=== PATIENT | female | born 1975 | race Caucasian/White ===

== ENCOUNTER → 2016-05-18 | Outpatient (CLI) | payer OTHER ==
--- NOTE | 2016-05-18 23:44 | MR ---
EXAMINATION TYPE: MR lumbar spine wo/w con DATE OF EXAM: 05/18/2016 8:42 PM COMPARISON: NONE HISTORY: LBP in center to the left x 3 weeks, prior surgery October 2011 TECHNIQUE: Multiplanar, multisequence images of the lumbar spine were acquired without and utilizing 20 mL intra venous MultiHance gadolinium contrast. Diffusion weighted imaging was performed. FINDINGS: The lumbar vertebra have normal alignment. There is metal artifact from posterior multilevel fusion s urgery from L3 to S1. There is mild narrowing of disc spaces from L3 to S1. There is a small posterio r L5-S1 disc herniation without any significant encroachment on the spinal canal. There is no robert ari fracture. There is no paraspinal mass. Sacroiliac joints appear normal. There is no pathologic e nhancement. There is no evidence of spinal stenosis. The neural foramina are not well seen due to met al artifact but there is no obvious stenosis. Lumbar nerve roots appear normal. There is a small post erior disc bulge at T12-L1 without any significant impingement on the canal. IMPRESSION: Multilevel posterior fusion surgery. Mild degenerative disc space narrowing with a small posterior L5 -S1 disc herniation. No spinal stenosis. No fracture.
== END | disposition home or self-care (01) ==
LOC: RADMRIMAIN 19:31
PROVIDERS: ATTEND Family Medicine
DX: M48.06 Spinal stenosis, lumbar region (principal); M51.27 Other intervertebral disc displacement, lumbosacral region; Z98.1 Arthrodesis status
CPT/HCPCS: 72158; A9577

== ENCOUNTER → 2016-06-21 | Outpatient (CLI) | payer OTHER ==
--- NOTE | 2016-06-21 11:55 | CT ---
EXAMINATION TYPE: CT lumbar spine wo con DATE OF EXAM: 06/21/2016 10:02 AM COMPARISON: MRI lumbar spine May 18, 2016. CT lumbar spine March 22, 2012 HISTORY: Patient complains of new onset back pain similar to the pain she had prior to surgery. Leslee ent had lumbar fusion in 2012. Other mechanical complication of internal fusion per order. CT DLP: 1010 mGycm Automated exposure control for dose reduction was used. FINDINGS: There is redemonstration of 5 lumbar type vertebra. Lumbar spine redemonstrated satisfactory alignmen t without evidence of acute fracture or dislocation. There is redemonstration of metallic disc materi al at L3-L4, L4-L5, and L5-S1 levels. There is redemonstration of posterior fusion hardware bilateral ly at L3-S1 levels. Positioning is stable from 2012 CT. No new suspicious lucency is present. Vertebr al body heights and disc space heights above surgical levels are within normal limits and stable. The re is posterior decompression with bilateral laminectomy defects and spinous process resection from L 3 through L5 levels redemonstrated. Scar tissue posteriorly is again seen. Interval resolution of pos terior fluid collection is consistent with resolving seroma from 2012 CT. Axial images at T12-L1 level shows small right paracentral spur disc complex effacing anterior thecal sac on axial image 8, finding correlates with MRI sagittal image 8 and axial image 24, bilateral marzena ral foramina are patent. Axial images at L1-L2 and L2-L3 levels are felt to remain within normal limits. Axial images at L3-L4, L4-L5, and L5-S1 levels show artifact from metallic hardware is stable positio dustin of screws, right L5 screw extends just past anterolateral vertebral body margin but is unchanged from prior CT. There are bilateral laminectomy defects and spinous process resection with posterior scar tissue extending up to the spinal canal unchanged in appearance from prior study. Bilateral neur al foramina are grossly patent. IMPRESSION: NO SIGNIFICANT NEW FINDING FROM CT OR RECENT MRI TO ACCOUNT FOR PATIENT'S NEW SYMPTOMS OF RECURRENT B ACK PAIN.
== END | disposition home or self-care (01) ==
LOC: RADCTMAIN 09:26
PROVIDERS: ATTEND Specialist
DX: T84.296A Other mechanical complication of internal fixation device of vertebrae, initial encounter (principal); Z98.1 Arthrodesis status
CPT/HCPCS: 72131

== ENCOUNTER → 2016-10-11 | Outpatient (CLI) | payer OTHER ==
--- NOTE | 2016-10-11 12:30 | US ---
EXAMINATION TYPE: US abdomen complete DATE OF EXAM: 10/11/2016 COMPARISON: CT CLINICAL HISTORY: 41-year-old female R10.13 epigastric pain,R11.2 Nausea w/vomiting. TECHNIQUE: Multiple sonographic images of the abdomen are obtained. 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 The remainder shows no gross abnormality. Liver: Limited intercostal views show no gross abnormality. Gallbladder: wnl Evidence for sonographic Smith's sign: No CBD: wnl Spleen: Upper limits of normal. Right Kidney: No hydronephrosis. Left Kidney: No hydronephrosis Upper IVC: wnl Abd Aorta: wnl IMPRESSION: Some limitations due to bowel gas and intercostal scanning. No specific abnormality seen.
== END | disposition home or self-care (01) ==
LOC: RADUSWWP 10:09
PROVIDERS: ATTEND Family Medicine
DX: R10.13 Epigastric pain (principal); R11.2 Nausea with vomiting, unspecified
CPT/HCPCS: 76700

== ENCOUNTER → 2017-02-14 | Outpatient (CLI) | payer BC ==
[2017-02-14 12:31] LABS: Basophils % (A) 0 %; CH 26.8; CHCM 30.5; Eosinophils # (A) 0.1 k/uL (0-0.7); Eosinophils % (A) 2 %; HDW 2.83; HGB 10.8 gm/dL (11.4-16.0); Hypochromasia Marked; Luc % (Auto) 2; Lymphocytes # (A) 1.2 k/uL (1.0-4.8); Lymphocytes % (A) 20 %; MCH 26.4 pg (25.0-35.0); MCHC 29.9 g/dL (31.0-37.0); MCV 88.2 fL (80.0-100.0); Mean Platelet Volume 7.4; Monocytes # (A) 0.3 k/uL (0-1.0); Monocytes % (A) 5 %; Neutrophils # (A) 4.2 k/uL (1.3-7.7); Neutrophils % (A) 71 %; RBC 4.08 m/uL (3.80-5.40); WBC 5.9 k/uL (3.8-10.6); WBC (Perox) 5.87
== END | disposition home or self-care (01) ==
LOC: LABPAT 11:21
PROVIDERS: ATTEND Obstetrics & Gynecology
DX: Z01.812 Encounter for preprocedural laboratory examination (principal)
CPT/HCPCS: 36415; 85025

== ENCOUNTER 2017-02-26 06:03 | Day surgery (SDC) | payer BC, OTHER ==
[2017-02-19 14:59] VITALS: BMI 37.1
--- NOTE | 2017-02-21 07:46 | P.HPOB ---
History of Present Illness H&P Date: 02/21/17 Chief Complaint: Menorrhagia This patient is a pleasant 41-year-old 3 para 3 female who is presenting for endometrial ablation secondary to persistent menorrhagia. Patient's history is such that she's had an ultrasound that showed multiple small fibroids with a normal endometrium. She's been having regular menstrual cycles that were heavy and excessive interfering with her daily life. This time she is requesting NovaSure endometrial ablation for treatment. Review of Systems Constitutional: Denies chills, Denies fever Cardiovascular: Denies chest pain, Denies shortness of breath Respiratory: Denies cough Gastrointestinal: Denies abdominal pain, Denies diarrhea, Denies nausea, Denies vomiting Genitourinary: Denies dysuria, Denies hematuria Menstruation: Reports period heavy Past Medical History Additional Past Medical History / Comment(s): spinal fluid leak following back surgery, hx. chiari malformation, frequent headaches History of Any Multi-Drug Resistant Organisms: None Reported Past Surgical History: Appendectomy, Back Surgery, Section Additional Past Surgical History / Comment(s): back surg. 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 for chiari malformation Past Anesthesia/Blood Transfusion Reactions: Previous Problems w/ Anesthesia Additional Past Anesthesia/Blood Transfusion Reaction / Comment(s): hypotension w/spinal Smoking Status: Never smoker Past Alcohol Use History: None Reported Past Drug Use History: None Reported - Past Family History Mother Family Medical History: No Reported History Medications and Allergies Home Medications Medication Instructions Recorded Confirmed Type Eletriptan HBr [Relpax] 40 mg PO DAILY PRN 02/19/17 02/19/17 History Ibuprofen [Motrin] 600 mg PO Q8HR PRN 02/19/17 02/19/17 History Topiramate [Topamax] 100 mg PO HS 02/19/17 02/19/17 History Allergies Allergy/AdvReac Type Severity Reaction Status Date / Time morphine Allergy Severe Anaphylaxis Verified 02/19/17 14:34 Exam - OBG Physical Exam Abdomen: bowel sounds normal, no diffuse tenderness, no bruit present, no guarding noted, no hepatomegaly, no splenomegaly, no mass Vulva: both: normal Vagina: normal moisture, no discharge Cervix: no lesion, no discharge Uterus: enlarged Results Transvaginal ultrasound on January 23 shows an enlarged uterus with multiple fibroids however the endometrium was normal at 5 mm. Assessment and Plan (1) Menorrhagia Narrative/Plan: This is a pleasant 42-year-old 3 para 3 female with persistent menorrhagia requesting NovaSure endometrial ablation for treatment. Patient discussed the surgery and risks including risks of infection, bleeding, possible uterine perforation, and/or thermal injury. All the patient's questions are answered written consent is obtained. Plan is hysteroscopy, D&C, and NovaSure endometrial ablation. Status: Chronic Code(s): N92.0 - EXCESSIVE AND FREQUENT MENSTRUATION WITH REGULAR CYCLE SNOMED Code(s): 035224865
[~2017-02-26 06:03] MED LIST: DEXAMETHASONE SOD PHOSPHATE 10 MG/ML 1 ML VIAL IV ONE; LACTATED RINGERS 1,000 ML IV SCH; LIDOCAINE 1% 20 ML VIAL (10MG/ML) FOR IV START INTRADERMA PRN; ONDANSETRON 4 MG/2 ML VIAL IVP ONE; Pre Op ABX Message 1 EACH MISC MISCELLANE ONE; SCOPOLAMINE 1.5MG/72HR PATCH TRANSDERM ONE; fentaNYL (PF) 50 MCG/ML 2 ML AMP IV PRN
[2017-02-26 06:23] VITALS: RESP 16
[2017-02-26] MEDS ORDERED: SUCCINYLCHOLINE CHLORIDE VIAL 200 MG/10 ML VIAL IV ONE (07:24)
[2017-02-26] MEDS ORDERED: fentaNYL (PF) 50 MCG/ML 2 ML AMP ONE (07:24)
[2017-02-26] MEDS ORDERED: LIDOCAINE 1% INJ 10MG/ML (20 ML MDV) ONE (07:24)
[2017-02-26] MEDS ORDERED: PROPOFOL 10 MG/ML 20 ML VIAL IV ONE (07:24)
[2017-02-26] MEDS ORDERED: MIDAZOLAM 2 MG/2 ML VIAL ONE (07:24)
--- NOTE | 2017-02-26 08:01 | P.OP ---
Date of Procedure: 02/26/17 Preoperative Diagnosis: Menorrhagia Postoperative Diagnosis: Same Procedure(s) Performed: #1: Hysteroscopy. #2: Dilation and curettage. 3: NovaSure endometrial ablation Anesthesia: ANNEA Surgeon: Agapito Alexandre Estimated Blood Loss (ml): 15 Urine output (ml): 50 Pathology: other (Uterine curettings) Condition: stable Disposition: PACU Indications for Procedure: Please see dictated H&P for intimate details of this patient's admission. Brief summary is a pleasant 42-year-old female with refractory menorrhagia requesting NovaSure endometrial ablation for treatment. Patient does understand the surgery and risks including risks of infection, bleeding, possible uterine perforation, and/or thermal injury. All the patient's questions are answered and a written consent is obtained. Operative Findings: This patient had a normal-appearing endometrial cavity. Description of Procedure: This patient is taken to the operating room where she is laid in the supine position. She subsequently undergoes general endotracheal anesthesia without incident. With an adequate level of anesthesia she's placed in dorsal lithotomy position. She subsequently has a vaginal perineal prep and drape. Examination under anesthesia shows a mid position uterus. I first drain the bladder for 50 mL of clear urine. A weighted speculum was placed in the posterior vagina and the anterior lip of the cervix was grabbed with an Allis clamp. Uterus is then gently sounded to approximately 8.5 cm. The cervix is then gently dilated to allow the hysteroscope into the uterine cavity. Using saline solution hysteroscopy is performed and the uterine cavity length was calculated to be 6.0 cm. With this done, cervix is dilated more to allow a small curette into the uterine cavity. A gentle but thorough 4 quadrant curettage is done and this tissue sent off to pathology. With this done the NovaSure device is then opened and appears to be intact. It is set at a length of 6.0 cm and seated into place at a width of 4.6 cm. And then passes the cavity integrity test. It is enabled at 152 W setting for 70 seconds. With this done the NovaSure device is removed it appears to be intact. Hysteroscopy again is performed and the uterine cavity appears to be completely ablated. With this done the procedure is ended. The weighted speculum was removed. Allis clamp was removed. All counts are correct 3. Patient is awakened from anesthesia and taken to the recovery room in satisfactory condition. There are no complications.
[2017-02-26 08:13] VITALS: TEMP 97
[2017-02-26] MEDS ORDERED: KETOROLAC 30 MG/ML 1 ML VIAL IVP ONE (08:24)
[2017-02-26 08:56] VITALS: PULSE 68
[2017-02-26 09:20] VITALS: BP 128/78
== END 2017-02-26 09:35 | disposition home or self-care (01) ==
LOC: OR 06:03
PROVIDERS: ATTEND Obstetrics & Gynecology
DX: N85.8 Other specified noninflammatory disorders of uterus (principal); N85.00 Endometrial hyperplasia, unspecified; Z79.899 Other long term (current) drug therapy; Z88.5 Allergy status to narcotic agent
CPT/HCPCS: 58563; 81025; 88305; J2250; J0330; J1100; J2405; J2001; J3010; J1885; J2704

== ENCOUNTER → 2017-07-02 | Outpatient (CLI) | payer BC ==
--- NOTE | 2017-07-02 13:48 | MR ---
EXAMINATION TYPE: MR brain wo/w con DATE OF EXAM: 07/02/2017 COMPARISON: 09/29/2016 HISTORY: Weakness RLE Headache TECHNIQUE: Multiplanar, multisequence images of the brain and brainstem is performed without and with IV contras t, utilizing 10 mL intravenous Gadavist . FINDINGS: Diffusion weighted images demonstrate no evidence of a recent infarct or other diffusion ab normality. There is a COMPREHENSIVE OPHTHALMOLOGIST shunt catheter with postsurgical change involving the right calvarium. Tip of the santa ter appears located within the frontal horn of the right lateral ventricle. No hydrocephalus. Midline structures demonstrate normal morphology. Cerebellar tonsils are low-lying in position measur ing approximately 3 mm below the foramen magnum. Findings suggest previous decompression surgery for Chiari malformation. Correlate for C1 laminectomy. No mass effect upon the cerebellar tonsils. Post contrast images demonstrate no abnormal enhancement. The dural venous sinuses appear patent. Changes of chronic sinusitis are noted. White matter: Approximately 5-10 areas of abnormal signal scattered throughout the white matter bilaterally which a ppear stable in size shape and morphology from the previous exam. No enhancing lesions IMPRESSION: 1. Stable right-sided shunt catheter with the ventricular size stable from the prior exam and no diag nostic evidence of hydrocephalus. 2. Stable minimal nonspecific white matter changes. 3. The cerebellar tonsils are low-lying in position measuring approximately 3 mm below the foramen ma gnum. This is similar in appearance to the prior exam. Findings also suggest decompression surgery fo r previous Chiari malformation.
== END | disposition home or self-care (01) ==
LOC: RADMRIMAIN 11:49
PROVIDERS: ATTEND Family Medicine
DX: R29.898 Other symptoms and signs involving the musculoskeletal system (principal); R51 Headache
CPT/HCPCS: 70553; A9581

== ENCOUNTER 2017-10-04 21:23 | Emergency (ER) | payer OTHER ==
[2017-10-04] MEDS ORDERED: ONDANSETRON 4 MG/2 ML VIAL IVP STA (22:35)
[2017-10-04] MEDS ORDERED: SODIUM CHLORIDE 0.9% 1,000 ML IV STA (22:35)
[2017-10-04] MEDS ORDERED: KETOROLAC 30 MG/ML 1 ML VIAL IVP STA (22:35)
[2017-10-04 22:48] LABS: Appearance,Urine Cloudy (Clear); Bilirubin,Urine Negative (Negative); Blood,Urine Negative (Negative); Color,Urine Yellow; Glucose,Urine (UA) Negative (Negative); Ketones,Urine Negative (Negative); Leukocyte Esterase,Urine Small (Negative); Mucus,Urine Few /hpf; Nitrite,Urine Negative (Negative); Protein,Urine Trace (Negative); RBC,Urine 1 /hpf (0-5); Specific Gravity,Urine 1.018 (1.001-1.035); Squamous Epithelial Cell,Urine 4 /hpf (0-4); Urobilinogen,Urine <2.0 mg/dL (<2.0); WBC,Urine 10 /hpf (0-5)
[2017-10-04 23:00] LABS: Basophils % (A) 0 %; Eosinophils # (A) 0.2 k/uL (0-0.7); Eosinophils % (A) 2 %; HCT 40.8 % (34.0-46.0); HGB 13.7 gm/dL (11.4-16.0); Lymphocytes # (A) 1.8 k/uL (1.0-4.8); Lymphocytes % (A) 26 %; MCH 31.4 pg (25.0-35.0); MCHC 33.7 g/dL (31.0-37.0); MCV 93.3 fL (80.0-100.0); Monocytes # (A) 0.3 k/uL (0-1.0); Monocytes % (A) 5 %; Neutrophils # (A) 4.6 k/uL (1.3-7.7); Neutrophils % (A) 65 %; Platelet Count 181 k/uL (150-450); RBC 4.37 m/uL (3.80-5.40); RDW 13.2 % (11.5-15.5); WBC 7.1 k/uL (3.8-10.6)
[2017-10-04 23:10] LABS: ALT 29 U/L (9-52); AST 22 U/L (14-36); Alkaline Phosphatase 59 U/L (38-126); Amylase 58 U/L (30-110); Anion Gap 12 mmol/L; Blood Urea Nitrogen 13 mg/dL (7-17); Calcium 9.2 mg/dL (8.4-10.2); Carbon Dioxide 19 mmol/L (22-30); Chloride 108 mmol/L (98-107); Glucose 98 mg/dL (74-99); Lipase 168 U/L (23-300); Potassium 4.2 mmol/L (3.5-5.1); Sodium 139 mmol/L (137-145); Total Bilirubin 0.6 mg/dL (0.2-1.3); Total Protein 6.7 g/dL (6.3-8.2)
--- NOTE | 2017-10-05 00:01 | XR ---
EXAMINATION TYPE: XR KUB DATE OF EXAM: 10/04/2017 COMPARISON: 11/08/2012 HISTORY: Right flank pain TECHNIQUE: 2 views FINDINGS: There is no sign of intestinal obstruction or pneumoperitoneum. Fecal pattern is normal. Kelly ng bases are clear. There is fusion surgery in the lower lumbar spine. IMPRESSION: Nonacute abdomen. No adverse change.
[2017-10-05 00:09] VITALS: RESP 16
--- NOTE | 2017-10-05 00:23 | CT ---
EXAMINATION TYPE: CT abdomen pelvis w con DATE OF EXAM: 10/05/2017 COMPARISON: 08/15/2014 HISTORY: RT flank pain and nausea. CT DLP: 1713.00 mGycm Automated exposure control for dose reduction was used. TECHNIQUE: Helical acquisition of images was performed from the lung bases through the pelvis. CONTRAST: Performed without Oral Contrast and with IV Contrast, patient injected with 100 mL of Isovue 300. FINDINGS: Lung bases are clear of consolidation. There is no pleural effusion. Heart size is normal. There is n o pericardial effusion. Liver spleen pancreas gallbladder appear normal. Bile ducts are not dilated. There is no adrenal mass. Kidneys show satisfactory contrast opacification. There is no hydronephrosi s. There are small right renal nonobstructing calculi. There is no retroperitoneal adenopathy. There is no ascites. There are clips in the right lower quadrant probably from appendectomy. Appendix is no t seen. There is no sign of free air. I see no intestinal wall thickening. There are no dilated loops. Bladder distends smoothly. Uterus is anteverted. There is multilevel posterior fusion surgery in the lumbar spine from L3 to S1. There is no compression fracture. IMPRESSION: THERE IS SIGNIFICANT CLEARING OF THE INFILTRATE AND ATELECTASIS AT THE LUNG BASES COMPARED TO OLD EXA M. NONOBSTRUCTING RIGHT RENAL CALCULI APPEAR NEW COMPARED TO OLD EXAM. NO SIGN OF ACUTE ABDOMEN AND P JUAN RAMON.
[2017-10-05] MEDS ORDERED: CYCLOBENZAPRINE 10MG STARTER 3 TAB BTL PO STA (01:39)
--- NOTE | 2017-10-05 01:42 | ED ---
Abdominal Pain HPI - General Chief Complaint: Abdominal Pain Stated Complaint: Abd Pain Time Seen by Provider: 10/04/17 21:39 Source: patient Mode of arrival: ambulatory Limitations: no limitations - History of Present Illness Initial Comments: 42-year-old female patient presents the emergency department today for evaluation of right flank pain since 3:30 this afternoon. Patient states that the pain is sharp in nature. States it is waxing and waning. Follow like a spasming type pain. Patient states she has had a history of kidney stones in the past and this didn't feel somewhat similar as far she can remember. Patient states she was nauseated with onset of the pain. Patient denies any hematuria, dysuria, urinary frequency, urinary urgency. She denies any fevers or chills. Denies any constipation or diarrhea. She denies any radiation of the pain into her abdomen, groin, or legs. Patient denies any recent rash, shortness breath, chest pain, numbness, tingling, dizziness, weakness, headache , visual changes, or any other complaints. - Related Data Home Medications Medication Instructions Recorded Confirmed Eletriptan HBr [Relpax] 40 mg PO DAILY PRN 02/19/17 10/04/17 Acetaminophen-Codeine 300-30mg 1 tab PO ONCE PRN 10/04/17 10/04/17 [Tylenol w/codeine #3] Ibuprofen [Motrin] 600 mg PO Q6HR PRN 10/04/17 10/04/17 Topiramate [Trokendi Xr] 100 mg PO HS 10/04/17 10/04/17 Previous Rx's Medication Instructions Recorded Cyclobenzaprine [Flexeril] 10 mg PO TID #15 tab 10/05/17 Allergies Allergy/AdvReac Type Severity Reaction Status Date / Time morphine Allergy Severe Anaphylaxis Verified 10/04/17 21:41 Review of Systems ROS Statement: Those systems with pertinent positive or pertinent negative responses have been documented in the HPI. ROS Other: All systems not noted in ROS Statement are negative. Past Medical History Additional Past Medical History / Comment(s): spinal fluid leak following back surgery. NAOMI, Back pain History of Any Multi-Drug Resistant Organisms: None Reported Past Surgical History: Back Surgery Additional Past Surgical History / Comment(s): vp talent management shunt, neuro stimulator Past Anesthesia/Blood Transfusion Reactions: No Reported Reaction Additional Past Anesthesia/Blood Transfusion Reaction / Comment(s): Reaction to spinal: hypotension Past Psychological History: No Psychological Hx Reported Smoking Status: Never smoker Past Alcohol Use History: None Reported Past Drug Use History: None Reported General Exam Limitations: no limitations General appearance: alert, in no apparent distress, other (This is a well- developed, well-nourished adult female patient in no acute distress. Vital signs upon presentation are temperature 98.1F, pulse 80, respirations 18, blood pressure 166/103, pulse ox 100% on room air.) Eye exam: Present: normal appearance, PERRL, EOMI. Absent: scleral icterus, conjunctival injection, periorbital swelling ENT exam: Present: normal exam, normal oropharynx, mucous membranes moist Respiratory exam: Present: normal lung sounds bilaterally. Absent: respiratory distress, wheezes, rales, rhonchi, stridor Cardiovascular Exam: Present: regular rate, normal rhythm, normal heart sounds. Absent: systolic murmur, diastolic murmur, rubs, gallop, clicks GI/Abdominal exam: Present: soft, normal bowel sounds. Absent: distended, tenderness, guarding, rebound, rigid Back exam: Present: normal inspection. Absent: CVA tenderness (R), CVA tenderness (L) Neurological exam: Present: alert, oriented X3, CN II-XII intact Psychiatric exam: Present: normal affect, normal mood Skin exam: Present: warm, dry, intact, normal color. Absent: rash Course Vital Signs 10/04/17 10/05/17 10/05/17 21:33 00:00 01:55 Temperature 98.1 F 97.6 F Pulse Rate 80 71 Respiratory 18 16 16 Rate Blood Pressure 166/103 123/76 O2 Sat by Pulse 100 98 100 Oximetry Medical Decision Making - Medical Decision Making 42-year-old female patient presents to the emergency department today for evaluation of right flank pain. Patient states that at onset the pain was severe. Physical examination was unremarkable. Abdomen was soft and nontender. There is no flank tenderness. Did review labs, kidney function was within normal range. Urinalysis showed no evidence of blood. Given severity of patient's pain and history of multiple back surgeries as well as CLIENT ACCOUNT MANAGER shunt insertion did perform CT of the abdomen and pelvis. CT was normal showed some renal stones on the right side with no obstruction of the ureter. No other acute findings. I did discuss findings and results with the patient. Given patient's history of back pain we did discuss possible musculoskeletal cause for her symptoms. She'll be given a prescription for muscle relaxers. She does have Tylenol 3 at home she is instructed to take this if necessary. She is instructed to follow-up with her primary care physician for recheck in 1-2 days. Return parameters discussed in detail. She verbalizes understanding and agrees with this plan. - Lab Data Result diagrams: 10/04/17 22:45 10/04/17 22:45 Lab Results 10/04/17 10/04/17 10/04/17 Range/Units 22:30 22:30 22:45 WBC (3.8-10.6) k/uL RBC (3.80-5.40) m/uL Hgb (11.4-16.0) gm/dL Hct (34.0-46.0) % MCV (80.0-100.0) fL MCH (25.0-35.0) pg MCHC (31.0-37.0) g/dL RDW (11.5-15.5) % Plt Count (150-450) k/uL Neutrophils % % Lymphocytes % % Monocytes % % Eosinophils % % Basophils % % Neutrophils # (1.3-7.7) k/uL Lymphocytes # (1.0-4.8) k/uL Monocytes # (0-1.0) k/uL Eosinophils # (0-0.7) k/uL Basophils # (0-0.2) k/uL Sodium 139 (137-145) mmol/L Potassium 4.2 (3.5-5.1) mmol/L Chloride 108 H (98-107) mmol/L Carbon Dioxide 19 L (22-30) mmol/L Anion Gap 12 mmol/L BUN 13 (7-17) mg/dL Creatinine 0.80 (0.52-1.04) mg/dL Est GFR (CKD-EPI)AfAm >90 (>60 ml/min/1.73 sqM) Est GFR (CKD-EPI)NonAf >90 (>60 ml/min/1.73 sqM) Glucose 98 (74-99) mg/dL Calcium 9.2 (8.4-10.2) mg/dL Total Bilirubin 0.6 (0.2-1.3) mg/dL AST 22 (14-36) U/L ALT 29 (9-52) U/L Alkaline Phosphatase 59 (38-126) U/L Total Protein 6.7 (6.3-8.2) g/dL Albumin 4.0 (3.5-5.0) g/dL Amylase 58 (30-110) U/L Lipase 168 (23-300) U/L Urine Color Yellow Urine Appearance Cloudy H (Clear) Urine pH 6.0 (5.0-8.0) Ur Specific [place] 1.018 (1.001-1.035) Urine Protein Trace H (Negative) Urine Glucose (UA) Negative (Negative) Urine Ketones Negative (Negative) Urine Blood Negative (Negative) Urine Nitrite Negative (Negative) Urine Bilirubin Negative (Negative) Urine Urobilinogen <2.0 (<2.0) mg/dL Ur Leukocyte Esterase Small H (Negative) Urine RBC 1 (0-5) /hpf Urine WBC 10 H (0-5) /hpf Ur Squamous Epith Cells 4 (0-4) /hpf Urine Mucus Few H (None) /hpf Urine HCG, Qual Not Detected (Not Detectd) 10/04/17 Range/Units 22:45 WBC 7.1 (3.8-10.6) k/uL RBC 4.37 (3.80-5.40) m/uL Hgb 13.7 (11.4-16.0) gm/dL Hct 40.8 (34.0-46.0) % MCV 93.3 (80.0-100.0) fL MCH 31.4 (25.0-35.0) pg MCHC 33.7 (31.0-37.0) g/dL RDW 13.2 (11.5-15.5) % Plt Count 181 (150-450) k/uL Neutrophils % 65 % Lymphocytes % 26 % Monocytes % 5 % Eosinophils % 2 % Basophils % 0 % Neutrophils # 4.6 (1.3-7.7) k/uL Lymphocytes # 1.8 (1.0-4.8) k/uL Monocytes # 0.3 (0-1.0) k/uL Eosinophils # 0.2 (0-0.7) k/uL Basophils # 0.0 (0-0.2) k/uL Sodium (137-145) mmol/L Potassium (3.5-5.1) mmol/L Chloride (98-107) mmol/L Carbon Dioxide (22-30) mmol/L Anion Gap mmol/L BUN (7-17) mg/dL Creatinine (0.52-1.04) mg/dL Est GFR (CKD-EPI)AfAm (>60 ml/min/1.73 sqM) Est GFR (CKD-EPI)NonAf (>60 ml/min/1.73 sqM) Glucose (74-99) mg/dL Calcium (8.4-10.2) mg/dL Total Bilirubin (0.2-1.3) mg/dL AST (14-36) U/L ALT (9-52) U/L Alkaline Phosphatase (38-126) U/L Total Protein (6.3-8.2) g/dL Albumin (3.5-5.0) g/dL Amylase (30-110) U/L Lipase (23-300) U/L Urine Color Urine Appearance (Clear) Urine pH (5.0-8.0) Ur Specific [place] (1.001-1.035) Urine Protein (Negative) Urine Glucose (UA) (Negative) Urine Ketones (Negative) Urine Blood (Negative) Urine Nitrite (Negative) Urine Bilirubin (Negative) Urine Urobilinogen (<2.0) mg/dL Ur Leukocyte Esterase (Negative) Urine RBC (0-5) /hpf Urine WBC (0-5) /hpf Ur Squamous Epith Cells (0-4) /hpf Urine Mucus (None) /hpf Urine HCG, Qual (Not Detectd) - Radiology Data Radiology results: report reviewed, image reviewed CT of the abdomen and pelvis with contrast was obtained. Report was reviewed in its entirety. Impression by Dr. Griffin shows significant clearing of the infiltrate and atelectasis at the lung bases compared to old exam. Nonobstructing right renal calculi appeared new compared to old exam. No sign of acute abdomen and pelvis. KUB x-ray of the abdomen was obtained. There is no sign of intestinal obstruction or pneumoperitoneum. Fecal pattern is normal. Lung bases are clear. There is fusion surgery in the lower lumbar spine. Impression by Dr. Griffin shows nonacute abdomen with no adverse change. Disposition Clinical Impression: Right flank pain Disposition: HOME SELF-CARE Condition: Good Instructions: Flank Pain (ED), Muscle Spasm (ED) Additional Instructions: Apply warm moist heat over the painful areas. Try Flexeril if your symptoms return. Follow up with your primary care physician for recheck in 1-2 days. Return here immediately for any new, worsening, or concerning symptoms. Prescriptions: Cyclobenzaprine [Flexeril] 10 mg PO TID #15 tab Is patient prescribed a controlled substance at d/c from ED?: No Referrals: Batsheva Riddle MD [Primary Care Provider] - 1-2 days Time of Disposition: 01:41
[2017-10-05 01:57] VITALS: BP 123/76; PULSE 71; TEMP 97.6
== END 2017-10-05 01:59 | disposition home or self-care (01) ==
LOC: EC 21:23
DX: R10.9 Unspecified abdominal pain (principal); J98.11 Atelectasis; R91.8 Other nonspecific abnormal finding of lung field; N20.0 Calculus of kidney; R11.0 Nausea; Z79.899 Other long term (current) drug therapy; Z88.5 Allergy status to narcotic agent
CPT/HCPCS: 36415; 80053; 82150; 83690; 85025; 81001; 81025; 74018; 74177; 99284; 96374; 96375; 96361; J2405; J1885; Q9967

== ENCOUNTER → 2017-10-16 | Outpatient (CLI) | payer OTHER ==
--- NOTE | 2017-10-16 11:04 | XR ---
Abdomen HISTORY: Right ureter stone Frontal view of the abdomen on 2 images correlated to prior CT 10/04/2017 There is a calcification superimposed over the right kidney measuring approximately 5 mm as noted on CT. Multiple scattered calcifications are present within the pelvis, many likely representing phlebol iths. Difficult to exclude distal ureteral calculus. Postop changes are noted to the lumbosacral spin e. Surgical clips present in the right lower quadrant. Lung bases are clear. IMPRESSION: Right-sided nephrolithiasis. Indeterminate calcifications within the pelvis.
== END | disposition home or self-care (01) ==
LOC: RADXRMAIN 09:00
PROVIDERS: ATTEND Urology
DX: N20.2 Calculus of kidney with calculus of ureter (principal)
CPT/HCPCS: 74018

== ENCOUNTER → 2017-10-18 | Outpatient (CLI) | payer OTHER ==
[2017-10-18 09:25] LABS: Basophils % (A) 1 %; Eosinophils # (A) 0.2 k/uL (0-0.7); Eosinophils % (A) 3 %; HCT 38.9 % (34.0-46.0); HGB 12.7 gm/dL (11.4-16.0); Lymphocytes # (A) 1.1 k/uL (1.0-4.8); Lymphocytes % (A) 19 %; MCH 30.5 pg (25.0-35.0); MCHC 32.7 g/dL (31.0-37.0); MCV 93.2 fL (80.0-100.0); Mean Platelet Volume 6.9; Monocytes # (A) 0.3 k/uL (0-1.0); Monocytes % (A) 5 %; Neutrophils % (A) 71 %; Platelet Count 296 k/uL (150-450); RBC 4.18 m/uL (3.80-5.40); RDW 12.9 % (11.5-15.5); WBC 5.6 k/uL (3.8-10.6)
[2017-10-18 09:26] LABS: Potassium 4.5 mmol/L (3.5-5.1)
[2017-10-18 09:37] LABS: Appearance,Urine Cloudy (Clear); Bacteria,Urine Few /hpf; Bilirubin,Urine Negative (Negative); Blood,Urine Trace (Negative); Color,Urine Yellow; Glucose,Urine (UA) Negative (Negative); Ketones,Urine Negative (Negative); Leukocyte Esterase,Urine Large (Negative); Mucus,Urine Occasional /hpf; Nitrite,Urine Negative (Negative); PH, Urine 5.5 (5.0-8.0); Protein,Urine Trace (Negative); RBC,Urine 6 /hpf (0-5); Specific Gravity,Urine 1.019 (1.001-1.035); Squamous Epithelial Cell,Urine 4 /hpf (0-4); Urobilinogen,Urine <2.0 mg/dL (<2.0); WBC,Urine 45 /hpf (0-5)
== END | disposition home or self-care (01) ==
LOC: LABPAT 08:52 → LABWHC1 08:52
PROVIDERS: ATTEND Urology
DX: Z01.812 Encounter for preprocedural laboratory examination (principal); N20.2 Calculus of kidney with calculus of ureter; R31.29 Other microscopic hematuria; Z79.899 Other long term (current) drug therapy
CPT/HCPCS: 36415; 80048; 81001; 85025; 87086

== ENCOUNTER 2017-10-22 13:29 | Day surgery (SDC) | payer OTHER ==
[2017-10-18 14:47] VITALS: BMI 38.7
--- NOTE | 2017-10-22 07:55 | P.GSHP ---
History of Present Illness H&P Date: 10/22/17 42yo fen=male with persistent right ureteral colic She comes for right ureteroscopy and laser lithotripsy to remove the stone and the colic - Constitutional Constitutional: Reports chronic headaches Past Medical History Additional Past Medical History / Comment(s): Hx spinal fluid leak following back surgery. NAOMI malformation, chronic back pain. Hx 1 kidney stone and now current kidney stone. History of Any Multi-Drug Resistant Organisms: None Reported Past Surgical History: Appendectomy, Back Surgery, Section Additional Past Surgical History / Comment(s): evp operations shunt, neuro stimulator, with multiple revisions on both, then both removed. L3-S1 fusion, Section X2. Surgery for Chiari Malformation. Past Anesthesia/Blood Transfusion Reactions: Previous Problems w/ Anesthesia Additional Past Anesthesia/Blood Transfusion Reaction / Comment(s): Reaction to spinal: hypotension with one of Sections - blood pressure was 40/20. Past Psychological History: No Psychological Hx Reported Smoking Status: Never smoker Past Alcohol Use History: None Reported Past Drug Use History: None Reported - Past Family History Mother Family Medical History: No Reported History Medications and Allergies Home Medications Medication Instructions Recorded Confirmed Type Ibuprofen [Motrin] 600 mg PO Q6HR PRN 10/04/17 10/18/17 History Allergies Allergy/AdvReac Type Severity Reaction Status Date / Time morphine Allergy Severe Anaphylaxis Verified 10/18/17 14:29 Surgical - Exam - General well developed, well nourished, no distress - Eyes PERRL - ENT no hearing loss - Neck no masses - Respiratory normal expansion, normal respiratory effort - Cardiovascular Rhythm: regular - Abdomen Abdomen: soft, non tender - Integumentary no rash, no growths - Neurologic normal coordination, normal sensation - Musculoskeletal normal gait, normal posture - Psychiatric oriented to time, oriented to person, oriented to place, speech is normal, memory intact Assessment and Plan Assessment: Impression: right ureteral calculous Plan Right ureteroscopy with laser lithotripsy
[~2017-10-22 13:29] MED LIST changes: -LACTATED RINGERS 1,000 ML IV SCH; +MIDAZOLAM 2 MG/2 ML VIAL IV PRN; -Pre Op ABX Message 1 EACH MISC MISCELLANE ONE; -SCOPOLAMINE 1.5MG/72HR PATCH TRANSDERM ONE
--- NOTE | 2017-10-22 14:02 | XR ---
EXAMINATION TYPE: XR KUB DATE OF EXAM: 10/22/2017 COMPARISON: 10/16/2017 INDICATION: Right renal calculi TECHNIQUE: Single view abdomen frontal projection FINDINGS: There is a normal bowel gas pattern. Psoas margins are normal. No organomegaly is present. There is a 0.5 cm calcification within the inferior pole right kidney present previously. Surgical cl ips are within the right midabdomen. Phleboliths appear to be within the pelvis appears stable. IMPRESSION: 1. Inferior pole right renal stone
[2017-10-22 14:05] VITALS: RESP 18; TEMP 98.5
[2017-10-22] MEDS ORDERED: LACTATED RINGERS 1,000 ML IV ONE (14:10)
[2017-10-22] MEDS: LACTATED RINGERS 1,000 ML IV SCH ×2 (15:51→16:44)
[2017-10-22] MEDS ORDERED: fentaNYL (PF) 50 MCG/ML 2 ML AMP ONE (16:29)
[2017-10-22] MEDS ORDERED: MIDAZOLAM 2 MG/2 ML VIAL ONE (16:29)
[2017-10-22] MEDS ORDERED: PROPOFOL 10 MG/ML 20 ML VIAL IV ONE (16:29)
[2017-10-22] MEDS ORDERED: LABETALOL 5 MG/ML VIAL MDV ONE (16:29)
--- NOTE | 2017-10-22 16:57 | P.OP ---
Date of Procedure: 10/22/17 Preoperative Diagnosis: Right ureteral stone Postoperative Diagnosis: Same Procedure(s) Performed: Cystoscopy, right retrograde pyelogram, right ureteroscopy Anesthesia: ANA LLOYD Surgeon: Erick Moreno Pathology: none sent Condition: stable Disposition: PACU Indications for Procedure: The patient is a 42-year-old female with kidney stones. She's been passing a 5 mm right ureteral stone and has a 5 mm right renal stone. She comes for right ureteroscopy because of pain. Her preoperative KUB today is indeterminate as to whether they're stone present are not. We discussed observing this versus proceed with a retrograde pyelogram. Because the amount of pain she wishes to proceed with a retrograde pyelogram we will do so. Description of Procedure: She'll brought operating suite and given sedative anesthetic. She's placed lithotomy position with sterile prep and drape. Cystoscopy Foroblique lens and 22-Kosovan sheath identifies a normal urethra. The bladder mucosa is unremarkable. Right ureteral orifice is edematous with erythema left is normal. Within a cone-tipped catheter a retrograde pyelogram was performed. The ureters of normal course and caliber but there is some narrowing and delayed drainage below the iliac vessels on the right side. Reason I passed a 7 -Kosovan mini ureteroscope up to this point. Some edema but no stone. Ago proximal to this and there is no remaining stone. Removed the ureteroscope. The bladder strain the patient's awake and returned recovery in good condition Impression passed ureteral stone right. The patient undergo shockwave lithotripsy to the renal stone and later date.
[2017-10-22 17:57] VITALS: BP 152/95; PULSE 85
--- NOTE | 2017-10-22 22:44 | FL ---
EXAMINATION TYPE: FL urography retrograde DATE OF EXAM: 10/22/2017 FLUOROSCOPY Fluoroscopy time of 23 seconds was used during right sided ureteroscopy. 1 image/s document/s the pr zeinab.
== END 2017-10-22 18:29 | disposition home or self-care (01) ==
LOC: OR 13:29
PROVIDERS: ATTEND Urology
DX: N20.2 Calculus of kidney with calculus of ureter (principal); Z79.899 Other long term (current) drug therapy; Z88.5 Allergy status to narcotic agent
CPT/HCPCS: 81025; 74420; 74018; 52005; J2250; J1100; J2405; J3010; J2704

== ENCOUNTER → 2017-11-01 | Outpatient (CLI) | payer OTHER ==
[2017-11-01 10:21] LABS: Basophils % (A) 0 %; Eosinophils # (A) 0.2 k/uL (0-0.7); Eosinophils % (A) 3 %; HGB 12.8 gm/dL (11.4-16.0); Lymphocytes # (A) 1.3 k/uL (1.0-4.8); Lymphocytes % (A) 20 %; MCH 29.5 pg (25.0-35.0); MCV 92.4 fL (80.0-100.0); Mean Platelet Volume 6.7; Monocytes # (A) 0.3 k/uL (0-1.0); Monocytes % (A) 5 %; Neutrophils # (A) 4.5 k/uL (1.3-7.7); Neutrophils % (A) 71 %; Platelet Count 230 k/uL (150-450); RBC 4.33 m/uL (3.80-5.40); WBC 6.3 k/uL (3.8-10.6)
[2017-11-01 10:25] LABS: Appearance,Urine Cloudy (Clear); Bacteria,Urine Rare /hpf; Bilirubin,Urine Negative (Negative); Blood,Urine Negative (Negative); Color,Urine Yellow; Glucose,Urine (UA) Negative (Negative); Ketones,Urine Negative (Negative); Leukocyte Esterase,Urine Moderate (Negative); Mucus,Urine Few /hpf; Nitrite,Urine Negative (Negative); Protein,Urine Trace (Negative); RBC,Urine 2 /hpf (0-5); Specific Gravity,Urine 1.024 (1.001-1.035); Squamous Epithelial Cell,Urine 6 /hpf (0-4); Urobilinogen,Urine <2.0 mg/dL (<2.0); WBC,Urine 12 /hpf (0-5)
[2017-11-01 10:28] LABS: Anion Gap 9 mmol/L; Blood Urea Nitrogen 14 mg/dL (7-17); Carbon Dioxide 25 mmol/L (22-30); Chloride 105 mmol/L (98-107); Potassium 3.9 mmol/L (3.5-5.1); Sodium 139 mmol/L (137-145)
== END | disposition home or self-care (01) ==
LOC: LABWHC1 09:51
PROVIDERS: ATTEND Urology
DX: N20.0 Calculus of kidney (principal)
CPT/HCPCS: 36415; 80051; 81001; 82565; 84520; 85025

== ENCOUNTER → 2017-11-12 | Outpatient (CLI) | payer OTHER ==
--- NOTE | 2017-11-12 08:12 | XR ---
EXAMINATION TYPE: XR abdomen 1V DATE OF EXAM: 11/12/2017 7:40 AM CLINICAL HISTORY: Right-sided nephrolithiasis. Status post lithotripsy TECHNIQUE: Single supine KUB image of the abdomen is obtained. COMPARISON: 10/22/2017. FINDINGS: Right-sided neurogenic stimulator overlies the right lower quadrant obscures visualization. Surgical clips are seen adjacent to this with surgical change of the lumbar spine. Hypoplastic 12th ribs are incidentally noted. The previously seen 5 mm calculus overlying the right l ower pole renal shadow is no longer identified. No left-sided nephrolithiasis is definitively seen. M oderate amount retained colonic stool is seen, partially limiting evaluation. Phleboliths within the pelvis appear similar to the prior of 10/22/2017. Mild femoral acetabular arthropathy is noted bilater ally. IMPRESSION: 1. The previously seen 5 mm right renal calculus is no longer present radiographically and likely pas sed in the interim. Pelvic phleboliths are stable. 2. No discrete left-sided nephrolithiasis.
== END | disposition home or self-care (01) ==
LOC: RADXRMAIN 07:28
PROVIDERS: ATTEND Urology
DX: N20.0 Calculus of kidney (principal)
CPT/HCPCS: 74018

== ENCOUNTER → 2018-01-29 | Outpatient (CLI) | payer OTHER ==
--- NOTE | 2018-01-29 10:07 | EST ---
EXERCISE STRESS AGE: 42 SEX: F HT: 66" WT: 250 PROTOCOL: Oni Stress Test STAGE: II DURATION OF EXERCISE: 6:00 HEART RATE REST: 80 BLOOD PRESSURE REST: 135/85 MAXIMUM HEART RATE ACHIEVED: 150 MAXIMUM BLOOD PRESSURE: 171/81 85% MPHR: 150 100% MPHR: 176 METS: 7.3 INDICATIONS: Chest pain. CLINICAL INFORMATION: Baseline EKG shows sinus rhythm, normal axis, normal intervals. Patient exercised on Oni protocol for a total of 6 minutes achieving 7 METS, 85% of predicted maximal heart rate without chest pain or diagnostic ST-segment depression. CONCLUSION: 1. Average exercise tolerance. 2. Negative stress test by EKG criteria. Patient had vague atypical chest discomfort during exercise. MMODL / IJN: [id number] /
== END ==
LOC: RADNMMAIN 08:23
PROVIDERS: ATTEND Family Medicine
DX: R07.89 Other chest pain (principal); I10 Essential (primary) hypertension; Z82.49 Family history of ischemic heart disease and other diseases of the circulatory system
CPT/HCPCS: 93017

== ENCOUNTER → 2019-05-21 | Outpatient (CLI) | payer BC ==
--- NOTE | 2019-05-21 11:04 | XR ---
EXAMINATION TYPE: XR thoracic spine complete DATE OF EXAM: 05/21/2019 Comparison: None Clinical History: 44-year-old female M54.6 Tspine pain Findings: Spinal stimulator and centered along the lower thoracic spinal canal. There are 12 thoracic vertebral bodies. No pedicles are visualized. Moderate disc degenerative change mid thoracic spine. Vertebral body heights are preserved. Alignment maintained though there is some limited examination of the uppermost thoracic vertebral bodies due t o overlying shoulders. Partially visualized posterior and interbody lumbar fusion hardware. Impression: Moderate degenerative disc disease mid to lower thoracic spine. No vertebral compression collapse or malalignment.
== END ==
LOC: RADXRMAIN 09:03
PROVIDERS: ATTEND Family Medicine
DX: M51.34 Other intervertebral disc degeneration, thoracic region (principal)
CPT/HCPCS: 72072

== ENCOUNTER → 2020-09-01 | Outpatient (CLI) | payer BC | END | disposition home or self-care (01) | LOC: LABWHC1 07:19 | PROVIDERS: ATTEND Family Medicine | DX: Z01.812 Encounter for preprocedural laboratory examination (principal); Z20.822 Contact with and (suspected) exposure to COVID-19 | CPT/HCPCS: U0003; C9803; U0005 ==

== ENCOUNTER 2020-11-06 10:09 | Emergency (ER) | payer BC ==
[2020-11-06 10:18] VITALS: BP 159/93; PULSE 90; RESP 18; TEMP 98.7
--- NOTE | 2020-11-06 11:09 | ED ---
Back Pain HPI - General Chief Complaint: Back Pain/Injury Stated Complaint: implant infection Source: patient, RN notes reviewed, old records reviewed Limitations: no limitations - History of Present Illness Initial Comments: 45-year-old well-appearing white female, alert and oriented 4, presents to the emergency room ambulatory with complaints of right lower back pain at site of her neurostimulator. She states that this was placed on 09/10/2020. She states that she woke up this morning and she felt some discomfort and her stated that it looks swollen and red. She states it feels like a burning pain. She did call her neurologist Dr. Davenport ([place]) and was told to come to the emergency room for evaluation and possibly get placed on broad-spectrum antibiotics and followup with him in the office next week. Patient denies any fevers, or focal neural deficits. She is able to ambulate she states that the pain feels a burning and pulling sensation. MD Complaint: back pain -: hour(s) (4) Similar Symptoms Previously: No Radiation: none Severity scale (1-10): 5 Quality: burning, other Consistency: constant Improves With: none Worsens With: none Context: other (Pulmonary at site of neurostimulator) Associated Symptoms: denies other symptoms - Related Data Home Medications Medication Instructions Recorded Confirmed Ibuprofen [Motrin] 600 mg PO Q6H PRN 10/04/17 11/06/20 Galcanezumab-Gnlm [Emgality] 120 mg SQ Q28D 11/06/20 11/06/20 Naratriptan HCl 2.5 mg PO DAILY PRN 11/06/20 11/06/20 amLODIPine [Norvasc] 2.5 mg PO HS 11/06/20 11/06/20 amLODIPine [Norvasc] 5 mg PO HS 11/06/20 11/06/20 Previous Rx's Medication Instructions Recorded Cephalexin [Keflex] 500 mg PO Q6HR 7 Days #28 cap 11/06/20 Sulfamethox-Tmp 800-160Mg [Bactrim 1 tab PO Q12HR 7 Days #14 tab 11/06/20 DS 800-160 mg] Allergies Allergy/AdvReac Type Severity Reaction Status Date / Time morphine Allergy Severe Anaphylaxis Verified 11/06/20 11:12 Review of Systems ROS Statement: Those systems with pertinent positive or pertinent negative responses have been documented in the HPI. ROS Other: All systems not noted in ROS Statement are negative. Past Medical History Additional Past Medical History / Comment(s): spinal fluid leak following back surgery. 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 Absent: scleral icterus, conjunctival injection, periorbital swelling ENT exam: Present: normal exam, normal oropharynx, mucous membranes moist Neck exam: Present: normal inspection. Absent: tenderness, meningismus, lymphadenopathy Respiratory exam: Present: normal lung sounds bilaterally. Absent: decreased breath sounds Cardiovascular Exam: Present: regular rate, normal rhythm, normal heart sounds. Absent: systolic murmur, diastolic murmur, rubs, gallop, clicks GI/Abdominal exam: Present: soft, normal bowel sounds. Absent: distended, tenderness, guarding, rebound, rigid Extremities exam: Present: normal inspection, full ROM, normal capillary refill. Absent: tenderness, pedal edema, joint swelling, calf tenderness Back exam: Present: normal inspection, full ROM, tenderness (Right lower lumbar spine at site of stimulator). Absent: muscle spasm, paraspinal tenderness, vertebral tenderness, rash noted Neurological exam: Present: alert, oriented X3, CN II-XII intact Psychiatric exam: Present: normal affect, normal mood Skin exam: Present: warm, dry, intact, normal color. Absent: rash Course Vital Signs 11/06/20 10:15 Temperature 98.7 F Pulse Rate 90 Respiratory 18 Rate Blood Pressure 159/93 O2 Sat by Pulse 99 Oximetry Medical Decision Making - Medical Decision Making This is a well-appearing pleasant patient who has been in contact with her neurologist by phone today and he directed her to come to the emergency room for antibiotics. He told her he would see her in the office next week. Patient has no systemic signs of infection. She denies any trauma. She is ambulatory with a steady gait. There is no focal neurological deficits. She is comfortable being discharged on antibiotics and will return if symptoms worsen including fevers, nausea vomiting or any focal neurological deficits. Case was discussed with Dr. Correa was agreeable to this plan of care. Disposition Clinical Impression: Cellulitis Disposition: HOME SELF-CARE Condition: Good Instructions (If sedation given, give patient instructions): Acute Low Back Pain (ED) Additional Instructions: Take antibiotics as prescribed and follow-up with their neurologist early next week. Return to the emergency room with any worsening symptoms including fever, increased pain or n/v. Prescriptions: Sulfamethox-Tmp 800-160Mg [Bactrim DS 800-160 mg] 1 tab PO Q12HR 7 Days #14 tab Cephalexin [Keflex] 500 mg PO Q6HR 7 Days #28 cap Is patient prescribed a controlled substance at d/c from ED?: No Referrals: Bobby Cannon [Primary Care Provider] - 1-2 days Time of Disposition: 11:12
== END 2020-11-06 11:22 | disposition home or self-care (01) ==
LOC: EC 10:09
DX: L03.312 Cellulitis of back [any part except buttock and flank] (principal)
CPT/HCPCS: 99283

== ENCOUNTER 2020-11-25 10:15 | Emergency (ER) | payer BC ==
[2020-11-25 10:31] VITALS: TEMP 97.6
[2020-11-25] MEDS ORDERED: METOCLOPRAMIDE 5 MG/ML 2 ML VIAL IVP STA (10:48)
[2020-11-25] MEDS ORDERED: SODIUM CHLORIDE 0.9% 1,000 ML IV ONE (10:48)
--- NOTE | 2020-11-25 11:00 | ED ---
General Adult HPI - General Chief complaint: Overdose Stated complaint: Overdose/Lightheaded Time Seen by Provider: 11/25/20 10:30 Source: patient, RN notes reviewed, old records reviewed Mode of arrival: ambulatory Limitations: no limitations - History of Present Illness Initial comments: This is a 45-year-old female presents emergency department stating that she recently had back surgery was given oxycodone for pain. Patient states she only takes half a pill at a time and today she inadvertently took 2 pills syncope were her blood pressure medications. Patient states she did at 8:00 this morning and since then she's become very nauseated but has not vomited and feels very dizzy and very sleepy. Patient states she was told by poison control to come to the emergency department. Patient denies any chest pain difficulty breathing shortness of breath. Patient denies any abdominal pain. Patient denies any other symptoms at this time. - Related Data Home Medications Medication Instructions Recorded Confirmed Galcanezumab-Gnlm [Emgality] 120 mg SQ Q28D 11/06/20 11/25/20 amLODIPine [Norvasc] 10 mg PO DAILY 11/06/20 11/25/20 oxyCODONE HCL [OxyIR] 2.5 - 5 mg PO Q6H PRN 11/25/20 11/25/20 Previous Rx's Medication Instructions Recorded Metoclopramide [Reglan] 5 mg PO Q6H #5 tab 11/25/20 Allergies Allergy/AdvReac Type Severity Reaction Status Date / Time morphine Allergy Severe Anaphylaxis Verified 11/25/20 11:40 Review of Systems ROS Statement: Those systems with pertinent positive or pertinent negative responses have been documented in the HPI. ROS Other: All systems not noted in ROS Statement are negative. Past Medical History Additional Past Medical History / Comment(s): spinal fluid leak following back surgery. NAOMI, Back pain History of Any Multi-Drug Resistant Organisms: None Reported Past Surgical History: Back Surgery Additional Past Surgical History / Comment(s): vp lab shunt, neuro stimulator Past Anesthesia/Blood Transfusion Reactions: No Reported Reaction Additional Past Anesthesia/Blood Transfusion Reaction / Comment(s): Reaction to spinal: hypotension Past Psychological History: No Psychological Hx Reported Smoking Status: Never smoker Past Alcohol Use History: None Reported Past Drug Use History: None Reported General Exam - General Exam Comments Initial Comments: GENERAL: Patient is well-developed and well-nourished. Patient is nontoxic and well- hydrated and is in mild distress. ENT: Neck is soft and supple. No significant lymphadenopathy is noted. Oropharynx is clear. Moist mucous membranes. EYES: The sclera were anicteric and conjunctiva were pink and moist. Extraocular movements were intact and pupils were equal round and reactive to light. Eyelids were unremarkable. PULMONARY: Unlabored respirations. Good breath sounds bilaterally. No audible rales rhonchi or wheezing was noted. CARDIOVASCULAR: There is a regular rate and rhythm without any murmurs gallops or rubs. ABDOMEN: Soft and nontender with normal bowel sounds. SKIN: Skin is clear with no lesions or rashes and otherwise unremarkable. NEUROLOGIC: Patient is alert and oriented x3. Cranial nerves II through XII are grossly intact. Motor and sensory are also intact. Normal speech, volume and content. Symmetrical smile. MUSCULOSKELETAL: Normal extremities with adequate strength and full range of motion. LYMPHATICS: No significant lymphadenopathy is noted PSYCHIATRIC: Normal psychiatric evaluation. Limitations: no limitations Course Vital Signs 11/25/20 11/25/20 10:28 12:08 Temperature 97.6 F Pulse Rate 79 76 Respiratory 20 18 Rate Blood Pressure 144/76 128/82 O2 Sat by Pulse 98 97 Oximetry Disposition Clinical Impression: Accidental drug overdose Disposition: HOME SELF-CARE Condition: Good Instructions (If sedation given, give patient instructions): Adult Overdose (ED) Prescriptions: Metoclopramide [Reglan] 5 mg PO Q6H #5 tab Is patient prescribed a controlled substance at d/c from ED?: No Referrals: Bobby Cannon [Primary Care Provider] - 1-2 days Time of Disposition: 12:56
[2020-11-25 13:19] VITALS: BP 122/74; PULSE 78; RESP 16
== END 2020-11-25 13:19 | disposition home or self-care (01) ==
LOC: EC 10:15
DX: T40.2X1A Poisoning by other opioids, accidental (unintentional), initial encounter (principal)
CPT/HCPCS: 99284; 96374; 96361; J2765

== ENCOUNTER → 2021-04-07 | Outpatient (CLI) | payer BC ==
--- NOTE | 2021-04-07 14:01 | MM ---
Reason for exam: screening (asymptomatic). Last mammogram was performed 6 years and 7 months ago. Physical Findings: A clinical breast exam by your physician is recommended on an annual basis and results should be correlated with mammographic findings. MG 3D Screening Mammo W/Cad Bilateral CC and MLO view(s) were taken. Prior study comparison: September 07, 2014, bilateral MG screening mammo w CAD. There are scattered fibroglandular densities. There is no discrete abnormality. ASSESSMENT: Negative, BI-RAD 1 RECOMMENDATION: Routine screening mammogram of both breasts in 1 year.
== END | disposition home or self-care (01) ==
LOC: RADMAMWWP 08:12
PROVIDERS: ATTEND Obstetrics & Gynecology
DX: Z12.31 Encounter for screening mammogram for malignant neoplasm of breast (principal)
CPT/HCPCS: 77063; 77067

== ENCOUNTER → 2022-01-04 | Outpatient (CLI) | payer BC ==
[2022-01-04 09:01] VITALS: BP 149/90; PULSE 68; RESP 18; TEMP 98.8
--- NOTE | 2022-01-04 14:09 | P.PAINPG ---
PQRS Measure Charge Sheet Comment: HISTORY OF PRESENT ILLNESS: 46 yr old female as a referral from Dr. Soto presents today w severe and chronic secondary to for evaluation. Pt states her pain level is currently at 6/10 in intensity, constant, localized in the lower lumbar spine, localized in the mid to lower lumbar spine, constant, dull in character w shooting towards the flanks L & R of midline. Pain is provoked w activity and bending. Pain is palliated w PT/massage/ chiropractics but it has been years, heat, ice, meds (Oxycodone, Ibuprofen), topicals, repositioning and rest. 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 No recent weight loss. NEUROLOGICAL: + numbness and tingling along the distal extremities. No seizure disorders or headaches. MUSCULOSKELETAL: + pain PSYCHIATRIC: Denies current depression or suicidal thoughts. Physical Examinations : Constitutional : Cooperative , not in acute distress . Neurologic : Cranial nerve II to XII intact. No focal neurological deficits. Psychiatric : alert & oriented x 3. Matching mood & appropriate affect. Judgment & insight intact. Musculoskeletal : Cervical Spine Motor strength in the deltoid and biceps: Normal right side. Normal Left side Motor strength biceps and the wrist extensors: Normal right side . Normal left side Motor strength in the triceps muscle: Normal right side. Normal left side Deep tendon reflexes: Normal at the biceps. Normal at Brachioradialis. Normal at triceps Vertebral body tenderness to deep palpation over Cervical facet loading test: positive bilaterally Spurling test: positive bilaterally Neck distraction test: positive bilaterally Debbie sign: positive bilaterally Lumbar spine Motor strength lower extremities ,thigh and legs 5/5 Right side , 5/5 Left side Deep tendon reflexes : Normal Knee Jerk. Normal Ankle Jerk Vertebral body tenderness over L5 Lumbar facet Loading Test: positive Right / positive Left Range of motion of the lumbar spine Flexion 30 degrees, extension 10 degrees Straight Leg Raise test: Left/ Right positive at degree Antoine test: positive right / positive left. Severe tenderness over the Sacroiliac joint on the Right / Left sides Gaenslen test: positive bilaterally Seated flexion test: positive bilaterally. Sacral spine : Severe tenderness over the Sacroiliac joint: right side / left side Range of motion: Flexion of the lumbar spine <60 degrees Range of motion: Extension of the lumbar spine <20 degrees Gaenslen's Test positive Hugo's Test positive Antione test: positive right side / left side Thigh Thrust Test Sacral Thrust Test Imaging: CT Lumbar spine from 2017 reviewed Assessment/ Plan : Lumbar DDD, Lumbar spondylosis Recommendation of CT without contrast of the lumbar spine re: M51.36 Pt is not interested in interventional treatment at this time as she has [address] from [facility]. She may return to our clinic on an as needed basis. All questions answered. I have spent greater than 30 minutes on patient care today. Dr Patel was available by phone for the evaluation of this patient. The time was used to review the medical records including relevant urine studies and Prescription history (MAPs), review of the available imaging, evaluation and examination of the patient, coordination of care with the medical staff and if applicable referring physicians, as well as creation of the medical record PQRS Narrative: Smoking Status Never smoker Pain Intensity [Back] 6 Hx Alcohol Use (MH) No Home Medications: Ambulatory Orders Galcanezumab-Gnlm [Emgality] 120 mg SQ Q28D 11/06/20 amLODIPine [Norvasc] 10 mg PO DAILY 11/06/20 Ibuprofen 800 mg PO Q8H PRN 01/02/22 Controlled Substance Measures - Controlled Substance Measures Is patient prescribed a controlled substance at discharge?: No
[2022-01-04 14:27] LABS: Basophils # (A) 0.03 X 10*3/uL (0.00-0.10); Basophils % (A) 0.6 %; Eosinophils # (A) 0.19 X 10*3/uL (0.04-0.35); Eosinophils % (A) 3.7 %; HGB 14.2 g/dL (12.0-15.0); Immature Grans, Automated 0.4 %; Lymphocytes # (A) 1.59 X 10*3/uL (0.90-5.00); Lymphocytes % (A) 30.6 %; MCH 31.3 pg (27.0-32.0); MCV 94.7 fL (80.0-97.0); Mean Platelet Volume 10.4 fL (9.5-12.2); Monocytes # (A) 0.31 X 10*3/uL (0.20-1.00); NRBC Per 100 WBC 0 /100 WBCS (0.0-0.0); Neutrophils # (A) 3.05 X 10*3/uL (1.80-7.70); Neutrophils % (A) 58.7 %; Platelet Count 213 X 10*3/uL (140-440); RBC 4.54 X 10*6/uL (4.10-5.20); WBC 5.19 X 10*3/uL (4.50-10.00)
[2022-01-04 15:49] LABS: ALT 25 U/L (8-44); AST 15 U/L (13-35); African American GFR (CKD) 89.9 (60.0-200.0); Albumin 4.3 g/dL (3.8-4.9); Albumin/Globulin Ratio 1.94 (1.60-3.17); Alkaline Phosphatase 78 U/L (41-126); BUN/Creat Ratio 14.87 Ratio (12.00-20.00); Blood Urea Nitrogen 13.1 mg/dL (9.0-27.0); Calcium 9.3 mg/dL (8.7-10.3); Carbon Dioxide 27.6 mmol/L (20.0-27.5); Chloride 105 mmol/L (96-109); Chol/HDL Ratio 2.51 Ratio; Globulin 2.2 g/dL (1.6-3.3); Glucose 97 mg/dL (70-110); LDL Cholesterol,Calculated 84.2 mg/dL (0.0-131.0); Non-African American GFR(CKD) 77.6 (60.0-200.0); Potassium 4.2 mmol/L (3.5-5.5); Sodium 142 mmol/L (135-145); Total Protein 6.5 g/dL (6.2-8.2)
== END ==
LOC: PNWHC3 08:12
PROVIDERS: ATTEND Specialist
DX: M47.816 Spondylosis without myelopathy or radiculopathy, lumbar region (principal); M51.36 Other intervertebral disc degeneration, lumbar region; E66.9 Obesity, unspecified; Z68.39 Body mass index [BMI] 39.0-39.9, adult; Z88.6 Allergy status to analgesic agent
CPT/HCPCS: 80053; 80061; 84443; 85025; 99211

== ENCOUNTER → 2022-01-04 | Outpatient (CLI) | payer BC | END | disposition home or self-care (01) | LOC: LABWHC1 08:19 | PROVIDERS: ATTEND Internal Medicine | DX: Z53.9 Procedure and treatment not carried out, unspecified reason (principal) ==

== ENCOUNTER → 2022-01-18 | Outpatient (CLI) | payer BC ==
--- NOTE | 2022-01-18 17:25 | CT ---
EXAMINATION TYPE: CT lumbar spine wo con DATE OF EXAM: 01/18/2022 COMPARISON: 06/21/2016 HISTORY: 46-year-old female M51.36, Back pain TECHNIQUE: Contiguous axial scanning of the lumbar spine without IV contrast. Coronal and sagittal re constructions performed. CT DLP: 1867.9 mGycm Automated exposure control for dose reduction was used. FINDINGS: 2 generator devices along the posterior aspect of the lower lumbar spine and upper buttock region. Sp inal stimulator raise within the lower thoracic spinal canal. Some bridging anterior endplate spondylosis lower thoracic spine. Posterior disc ossified complex T12 -L1 mildly narrowing the spinal canal. Postsurgical change of L3-S1 posterior and interbody lumbar fusion with corresponding laminectomies. Moderate degenerative disc disease and facet arthropathy above the fusion at L2-L3 with trace grade 1 retrolisthesis. There is mild narrowing of the spinal canal here at this level. Otherwise, remaining alignment is maintained and vertebral body heights are preserved. At L5-S1, there may be a right paracentral disc osteophyte complex. This could potentially abut the t raversing right S1 nerve root. On the left, changes result in moderate neuroforaminal stenosis at L5-S1 and L1-L2. Also at T9-T10. Mild at multiple additional levels. On the right, changes result in moderate neural foraminal stenosis at L5-S1, mild to moderate at L2-L 3, and mild at multiple additional levels. Punctate nonobstructive 2 mm left renal calculi. Two adjacent nonobstructive 4 mm right renal calculi . IMPRESSION: 1. STATUS POST L3-S1 POSTERIOR AND INTERBODY LUMBAR FUSION WITH CORRESPONDING LAMINECTOMIES. 2. THERE MAY BE A RIGHT PARACENTRAL DISC OSTEOPHYTE COMPLEX AT L5-S1 THAT COULD POTENTIALLY ABUT THE TRAVERSING RIGHT S1 NERVE ROOT. MODERATE BILATERAL NEUROFORAMINAL STENOSIS AT THIS LEVEL. 3. ABOVE THE FUSION AT L2-L3, THERE IS FACET ARTHROPATHY AND MODERATE DEGENERATIVE DISC DISEASE AND T RACE GRADE 1 RETROLISTHESIS. MILD NARROWING OF THE SPINAL CANAL AT THIS LEVEL WITH MILD TO MODERATE N EUROFORAMINAL NARROWING.
== END | disposition home or self-care (01) ==
LOC: RADCTMAIN 15:20
PROVIDERS: ATTEND Specialist
DX: M51.36 Other intervertebral disc degeneration, lumbar region (principal); N20.0 Calculus of kidney; M48.061 Spinal stenosis, lumbar region without neurogenic claudication
CPT/HCPCS: 72131

== ENCOUNTER → 2022-08-15 | Outpatient (CLI) | payer BC ==
--- NOTE | 2022-08-16 08:47 | MM ---
Reason for Exam: Screening (asymptomatic). Last mammogram was performed 1 year(s) and 4 month(s) ago. Patient History: Menarche at age 10. First Full-Term at age 18. Postmenopausal. Risk Values: Ana 5 year model risk: 0.8%. NCI Lifetime model risk: 8.2%. Prior Study Comparison: 09/07/2014 Bilateral Screening Mammogram, [facility]. 04/07/2021 Bilateral Screening Mammogram, [facility]. Tissue Density: There are scattered fibroglandular densities. Findings: Analyzed By CAD. There is no suspicious group of microcalcifications or new suspicious mass in either breast. Overall Assessment: Negative, BI-RAD 1 Management: Screening Mammogram of both breasts in 1 year. A clinical breast exam by your physician is recommended on an annual basis and results should be correlated with mammographic findings. Electronically signed and approved by: Duong Chao D.O.
== END | disposition home or self-care (01) ==
LOC: RADMAMWWP 07:01
PROVIDERS: ATTEND Internal Medicine
DX: Z12.31 Encounter for screening mammogram for malignant neoplasm of breast (principal); Z78.0 Asymptomatic menopausal state
CPT/HCPCS: 77063; 77067

== ENCOUNTER → 2023-02-10 | Outpatient (CLI) | payer BC ==
[2023-02-10 13:49] LABS: Basophils # (A) 0.04 X 10*3/uL (0.00-0.10); Basophils % (A) 0.6 %; Eosinophils # (A) 0.11 X 10*3/uL (0.04-0.35); Eosinophils % (A) 1.7 %; HCT 43.1 % (37.2-46.3); HGB 14.6 g/dL (12.0-15.0); Lymphocytes # (A) 1.33 X 10*3/uL (0.90-5.00); MCH 31.7 pg (27.0-32.0); MCHC 33.9 g/dL (32.0-37.0); MCV 93.7 FL (80.0-97.0); Mean Platelet Volume 10.5 FL (9.5-12.2); Monocytes # (A) 0.35 X 10*3/uL (0.20-1.00); Monocytes % (A) 5.3 %; NRBC Per 100 WBC 0 X 10*3/uL (0.00-0.01); Neutrophils # (A) 4.81 X 10*3/uL (1.80-7.70); Neutrophils % (A) 72.2 %; Platelet Count 221 X 10*3/uL (140-440); RDW 12.2 % (11.5-14.5); WBC 6.65 X 10*3/uL (4.50-10.00)
[2023-02-10 15:13] LABS: ALT 20 U/L (8-44); AST 15 U/L (13-35); Albumin 4.3 g/dL (3.8-4.9); Albumin/Globulin Ratio 1.79 Ratio (1.60-3.17); Alkaline Phosphatase 84 U/L (41-126); BUN/Creat Ratio 15.88 Ratio (12.00-20.00); Blood Urea Nitrogen 12.7 mg/dL (9.0-27.0); Calcium 9.3 mg/dL (8.7-10.3); Carbon Dioxide 25.1 mmol/L (21.6-31.8); Chloride 107 mmol/L (96-109); Chol/HDL Ratio 2.38 Ratio; Globulin 2.4 g/dL (1.6-3.3); Glucose 96 mg/dL (70-110); LDL Cholesterol,Calculated 89.2 mg/dL (0.0-131.0); Potassium 3.9 mmol/L (3.5-5.5); Sodium 143 mmol/L (135-145); Total Bilirubin 0.5 mg/dL (0.3-1.2); Total Protein 6.7 g/dL (6.2-8.2); VLDL Calculation 15.64 mg/dL (5.00-40.00)
== END | disposition home or self-care (01) ==
LOC: LABWHC1 08:17
PROVIDERS: ATTEND Internal Medicine
DX: Z11.59 Encounter for screening for other viral diseases (principal); I10 Essential (primary) hypertension
CPT/HCPCS: 36415; 80053; 80061; 83036; 83735; 84443; 85025; 86803

== ENCOUNTER → 2023-04-06 | Outpatient (CLI) | payer BC ==
--- NOTE | 2023-04-06 14:19 | XR ---
EXAMINATION TYPE: XR KUB DATE OF EXAM: 04/06/2023 2:06 PM CLINICAL HISTORY: Calculus of kidney. Calculus of ureter. TECHNIQUE: Two supplying KUB images of the abdomen are obtained. COMPARISON: Prior abdominal x-ray 2018. FINDINGS: There are likely approximately 3 left renal calculi measuring up to 6 mm in size. No defini tive right-sided nephrolithiasis. Surgical change L3 through L6 levels is redemonstrated. There are new stimulator devices overlying th e abdomen and upper pelvis. There is overall nonobstructive bowel gas pattern. Surgical clips right l ower quadrant are redemonstrated. IMPRESSION: As above.
== END | disposition home or self-care (01) ==
LOC: RADXRMAIN 13:55
PROVIDERS: ATTEND Urology
DX: N20.2 Calculus of kidney with calculus of ureter (principal)
CPT/HCPCS: 74018

== ENCOUNTER → 2023-04-10 | Outpatient (CLI) | payer BC ==
[2023-04-10 15:17] LABS: Basophils # (A) 0.04 X 10*3/uL (0.00-0.10); Basophils % (A) 0.7 %; Eosinophils # (A) 0.15 X 10*3/uL (0.04-0.35); Eosinophils % (A) 2.6 %; HCT 45.1 % (37.2-46.3); HGB 14.7 g/dL (12.0-15.0); Lymphocytes # (A) 1.34 X 10*3/uL (0.90-5.00); Lymphocytes % (A) 23.4 %; MCH 31.7 pg (27.0-32.0); MCHC 32.6 g/dL (32.0-37.0); MCV 97.4 FL (80.0-97.0); Mean Platelet Volume 10.7 FL (9.5-12.2); Monocytes # (A) 0.36 X 10*3/uL (0.20-1.00); Monocytes % (A) 6.3 %; NRBC Per 100 WBC 0 X 10*3/uL (0.00-0.01); Neutrophils # (A) 3.82 X 10*3/uL (1.80-7.70); Neutrophils % (A) 66.8 %; Platelet Count 228 X 10*3/uL (140-440); RBC 4.63 X 10*6/uL (4.10-5.20); RDW 12.2 % (11.5-14.5); WBC 5.72 X 10*3/uL (4.50-10.00)
[2023-04-10 15:24] LABS: BUN/Creat Ratio 14.67 Ratio (12.00-20.00); Blood Urea Nitrogen 13.2 mg/dL (9.0-27.0); Calcium 9.6 mg/dL (8.7-10.3); Carbon Dioxide 27.1 mmol/L (21.6-31.8); Chloride 106 mmol/L (96-109); Glucose 109 mg/dL (70-110); Sodium 143 mmol/L (135-145)
[2023-04-10 17:11] LABS: Appearance,Urine Cloudy (Clear); Bilirubin,Urine Negative (Negative); Blood,Urine Negative (Negative); Color,Urine Yellow (Yellow); Ketones,Urine Negative (Negative); Nitrite,Urine Negative (Negative); Specific Gravity,Urine 1.017 (1.001-1.030); Urobilinogen,Urine 0.2 E.U./DL
[2023-04-10 17:28] LABS: Bacteria,Urine None Seen (None Seen)
== END | disposition home or self-care (01) ==
LOC: LABPAT 08:15
PROVIDERS: ATTEND Urology
DX: Z01.812 Encounter for preprocedural laboratory examination (principal); N20.1 Calculus of ureter; N21.9 Calculus of lower urinary tract, unspecified
CPT/HCPCS: 80048; 81001; 85025

== ENCOUNTER 2023-04-12 09:16 | Day surgery (SDC) | payer BC ==
--- NOTE | 2023-04-11 16:23 | P.GSHP ---
History of Present Illness H&P Date: 04/11/23 48 yo female was hving severe right flank pain [place] [facility]. SHe had a ct scan in [place], [place] that showed several small distal right ureteral stones and a 1.7 cm bladder stone. She came to me for evaluation. She was relatively asx. I did a kub and couldnt say for certain I saw any right ureteral stones but she had the bladder stone. She comes for cysto lithotripsy, right retrograde and possible right ureteroscopy with laser lithotripsy/. - Constitutional Constitutional: Denies chills, Denies fever - EENT Eyes: denies blurred vision, denies pain Ears, nose, mouth and throat: Denies headache, Denies sore throat - Cardiovascular Cardiovascular: Denies chest pain, Denies shortness of breath - Respiratory Respiratory: Denies cough, Denies 7 - Gastrointestinal Gastrointestinal: Denies abdominal pain, Denies diarrhea, Denies nausea, Denies vomiting - Genitourinary (Female) Genitourinary: Denies dysuria, Denies hematuria - Genitourinary (Male) Genitourinary: Denies dysuria, Denies hematuria - Musculoskeletal Musculoskeletal: Denies myalgias - Integumentary Integumentary: Denies pruritus, Denies rash - Neurological Neurological: Denies numbness, Denies weakness - Psychiatric Psychiatric: Denies anxiety, Denies depression - Endocrine Endocrine: Denies fatigue, Denies weight change Past Medical History Past Medical History: Hypertension, Osteoarthritis (OA), Sleep Apnea/CPAP/BIPAP Additional Past Medical History / Comment(s): spinal fluid leak following back surgery. NAOMI, migraines, no cpap used, kidney stones, History of Any Multi-Drug Resistant Organisms: None Reported Past Surgical History: Appendectomy, Back Surgery, Section, Orthopedic Surgery Additional Past Surgical History / Comment(s): [employer] shunt, 2 neuro stimulator, rt ankle surgery, spinal fusion, micodisectomy, naomi decompression, mult shunt revisions, stimulator inserted/removed Past Anesthesia/Blood Transfusion Reactions: No Reported Reaction Additional Past Anesthesia/Blood Transfusion Reaction / Comment(s): Reaction to spinal: hypotension Smoking Status: Never smoker - Past Family History Mother Family Medical History: No Reported History Medications and Allergies Home Medications Medication Instructions Recorded Confirmed Type Galcanezumab-Gnlm [Emgality Pen] 120 mg SQ Q28D 11/06/20 04/09/23 History amLODIPine [Norvasc] 10 mg PO DAILY 11/06/20 04/09/23 History Ibuprofen 800 mg PO Q8H PRN 01/02/22 04/09/23 History Zonisamide 100 mg PO DAILY 05/31/22 04/09/23 History Pregabalin [Lyrica] 75 mg PO BID 04/09/23 04/09/23 History Allergies Allergy/AdvReac Type Severity Reaction Status Date / Time morphine Allergy Severe Anaphylaxis Verified 04/09/23 13:51 ondansetron [From Zofran] AdvReac Unknown Verified 04/09/23 13:51 prochlorperazine AdvReac Unknown Verified 04/09/23 13:51 [From Compazine] Results - Imaging Abdominal x-ray: report reviewed, image reviewed CT scan - abdomen: report reviewed CT scan - pelvis: report reviewed Assessment and Plan Assessment: Impression: bldder stone, right ureteral stone Plan: cystolithotripsy , right retrograde with possible right ureteroscopy and laser lithotripsy
[~2023-04-12 09:16] MED LIST changes: -DEXAMETHASONE SOD PHOSPHATE 10 MG/ML 1 ML VIAL IV ONE; +DEXAMETHASONE SOD PHOSPHATE 4 MG/ML 1 ML VIAL IV ONE; +HYDROmorphone 0.5 MG/0.5 ML SYRINGE IVP PRN; +LACTATED RINGERS 1,000 ML IV SCH; +LIDOCAINE 1% (10MG/ML) FOR IV START INTRADERMA PRN; -LIDOCAINE 1% 20 ML VIAL (10MG/ML) FOR IV START INTRADERMA PRN; -ONDANSETRON 4 MG/2 ML VIAL IVP ONE; -fentaNYL (PF) 50 MCG/ML 2 ML AMP IV PRN
[2023-04-12] MEDS ORDERED: droPERidol 5 MG/2 ML VIAL IVP ONE (10:15)
[2023-04-12] MEDS ORDERED: SCOPOLAMINE 1 MG/72 HR PATCH TRANSDERM ONE (10:17)
--- NOTE | 2023-04-12 11:18 | XR ---
EXAMINATION TYPE: XR KUB DATE OF EXAM: 04/12/2023 9:35 AM CLINICAL INDICATION:Female, 48 years old with history of kidney stones; H COMPARISON: KUB 04/06/2023 TECHNIQUE: Supine radiographic view/s of the abdomen/pelvis obtained. 2 images FINDINGS: Postoperative changes with bilateral neural stimulator devices and the leads extending into the thora cic spine region beyond the scope of the exam. Multilevel fusion in the lumbar spine with hardware L3 -L4-L5-S1 and corresponding laminectomies. Surgical clips in the soft tissues of the right lower abdo men. There may be a 3 mm calculus over the mid left kidney. No definite right renal calculi can be seen bu t there is overlying gas and stool. No stones are seen along the anticipated course of the ureters. I n the left pelvis there is a 20 x 14 mm ovoid calcific density projected over the superior aspect of the pubic symphysis not present in 2018 stable from 04/06/2023, etiology is uncertain but could potenti ally be a bladder calculus. Pelvic phleboliths are stable, greater on the left. Nonspecific, likely nonobstructive bowel gas pattern. IMPRESSION: Possible 3 mm left renal calculus. Potential bladder calculus.
[2023-04-12] MEDS ORDERED: fentaNYL (PF) 50 MCG/ML 2 ML AMP ONE (11:32)
[2023-04-12] MEDS ORDERED: PROPOFOL 10 MG/ML 20 ML VIAL IV ONE (11:32)
[2023-04-12] MEDS ORDERED: MIDAZOLAM 2 MG/2 ML VIAL ONE (11:32)
[2023-04-12] MEDS ORDERED: LIDOCAINE 1% INJ 10MG/ML (20 ML MDV) ONE (11:32)
[2023-04-12] MEDS ORDERED: SUCCINYLCHOLINE CHLORIDE 200 MG/10 ML VIAL IV ONE (11:32)
[2023-04-12] MEDS ORDERED: IOHEXOL 350 MG/ML 100 ML in EMPTY BAG 1 BAG IRRIGATION ONE (11:57)
--- NOTE | 2023-04-12 12:46 | P.OP ---
Date of Procedure: 04/12/23 Preoperative Diagnosis: Right ureteral calculi, bladder stone Postoperative Diagnosis: Right ureteral calculi [passed], bladder stone secondary to eroded mesh Procedure(s) Performed: Cystoscopy, right retrograde pyelogram, cystoscopy lithotripsy and laser removal of extruded mesh into the bladder Anesthesia: PREMA Surgeon: Erick Moreno Estimated Blood Loss (ml): 0 Pathology: other (Stone) Condition: stable Disposition: PACU Indications for Procedure: Patient is 48. She recently was identified ureteral stone on the right as well as a bladder stone. She also has lower urinary tract symptoms. She comes for cystoscopy retrograde pyelogram possible ureteroscopy and cystoscopy lithotripsy Description of Procedure: Patient brought to the operating suite. Given a general anesthetic. Placed lithotomy position with a sterile prep and drape. Cystoscopy Foroblique lens and 21-Guamanian sheath identifies a normal urethra. There is a 1.7 cm bladder stone on the left bladder neck. Both ureteral orifices are normal. Within an 8 cone-tipped catheter right retrograde pyelograms performed and the ureter is of normal course and caliber without filling defect or obstruction. The stones previously present must have passed I Then pass a attention to the stone on the left bladder neck. It is not free- floating. With the 365 laser probe the stone was broken into tiny fragments. At the base of the stone there is some extruding mesh from the sling procedure done a year ago for her stress urinary incontinence. After removing the stone I use a laser probe to remove the exposed mesh that is in the bladder. I removed the mesh from both areas where the mesh entered the bladder using the laser. At the end of the procedure there is no remaining mesh or stone. I drain the bladder of any stone. The bladder is drained the patient is awakened and returned recovery in good condition Impression right ureteral stones, passed bladder stone secondary to mesh erosion removed as well as the exposed portion of mesh removed. Recommendations: This is been discussed with the patient's . We'll do a follow-up in the office and eventual repeat cystoscopy to make sure no mesh returns.
[2023-04-12 13:00] VITALS: RESP 16; TEMP 97.6
[2023-04-12 13:55] VITALS: BP 131/83; PULSE 71
--- NOTE | 2023-04-12 19:49 | FL ---
EXAMINATION TYPE: FL urography retrograde DATE OF EXAM: 04/12/2023 FLUOROSCOPY Fluoroscopy time of 36 seconds was used during urologic procedure. 4 image/s document/s the procedur e. [id number] Gycm2 DAP
== END 2023-04-12 14:32 | disposition home or self-care (01) ==
LOC: OR 09:16
PROVIDERS: ATTEND Urology
DX: N21.0 Calculus in bladder (principal); G47.30 Sleep apnea, unspecified; I10 Essential (primary) hypertension; M19.90 Unspecified osteoarthritis, unspecified site; Z87.442 Personal history of urinary calculi; Z88.8 Allergy status to other drugs, medicaments and biological substances; Z90.49 Acquired absence of other specified parts of digestive tract
CPT/HCPCS: 52353; 82365; 74420; 74018; C1758; C1769; J2250; J0330; J1100; J0690; J2001; J3010; J2704; Q9967; J1790

== ENCOUNTER → 2023-10-24 | Outpatient (CLI) | payer BC ==
--- NOTE | 2023-10-24 08:49 | XR ---
EXAMINATION TYPE: XR lumbar spine 2 or 3V DATE OF EXAM: 10/24/2023 CLINICAL HISTORY: pain TECHNIQUE: Three views of the lumbar spine are submitted. COMPARISON: 02/13/2012 FINDINGS: Postoperative changes of lumbar laminectomy and fusion extending from L3 through L5 S1. Pedicular scr ews and intervertebral spacers redemonstrated. Postoperative alignment is within normal limits. No ev idence for fracture. No osseous lesions seen. IMPRESSION: Stable postoperative appearance of the lumbar spine.
== END | disposition home or self-care (01) ==
LOC: RADXRMAIN 08:25
PROVIDERS: ATTEND Internal Medicine
DX: G89.18 Other acute postprocedural pain (principal); M54.32 Sciatica, left side
CPT/HCPCS: 72100

== ENCOUNTER → 2024-03-05 | Outpatient (CLI) | payer BC ==
[2024-03-05 15:11] LABS: Basophils # (A) 0.03 X 10*3/uL (0.00-0.10); Basophils % (A) 0.6 %; Eosinophils # (A) 0.11 X 10*3/uL (0.04-0.35); HCT 43.4 % (37.2-46.3); HGB 14.3 g/dL (12.0-15.0); Lymphocytes # (A) 1.24 X 10*3/uL (0.90-5.00); Lymphocytes % (A) 22.8 %; MCH 30.8 pg (27.0-32.0); MCHC 32.9 g/dL (32.0-37.0); MCV 93.5 FL (80.0-97.0); Mean Platelet Volume 9.7 FL (9.5-12.2); Monocytes # (A) 0.34 X 10*3/uL (0.20-1.00); Monocytes % (A) 6.3 %; NRBC Per 100 WBC 0 X 10*3/uL (0.00-0.01); Neutrophils # (A) 3.71 X 10*3/uL (1.80-7.70); Neutrophils % (A) 68.1 %; Platelet Count 224 X 10*3/uL (140-440); RBC 4.64 X 10*6/uL (4.10-5.20); RDW 12.3 % (11.5-14.5); WBC 5.44 X 10*3/uL (4.50-10.00)
[2024-03-05 15:58] LABS: % Iron Saturation 37.36 (12.00-45.00); ALT 42 U/L (8-44); AST 21 U/L (13-35); Albumin 4.1 g/dL (3.8-4.9); Albumin/Globulin Ratio 1.78 Ratio (1.60-3.17); Alkaline Phosphatase 81 U/L (41-126); BUN/Creat Ratio 14.89 Ratio (12.00-20.00); Blood Urea Nitrogen 13.4 mg/dL (9.0-27.0); Calcium 9.5 mg/dL (8.7-10.3); Carbon Dioxide 27.2 mmol/L (21.6-31.8); Chloride 107 mmol/L (96-109); Globulin 2.3 g/dL (1.6-3.3); Glucose 106 mg/dL (70-110); Iron 102 UG/DL (50-170); LDL Cholesterol,Calculated 110.4 mg/dL (0.0-131.0); Potassium 4.3 mmol/L (3.5-5.5); Sodium 144 mmol/L (135-145); Total Bilirubin 0.4 mg/dL (0.3-1.2); Total Iron Binding Capacity 273 UG/DL (228-460); Total Protein 6.4 g/dL (6.2-8.2); Uric Acid 4.1 mg/dL (2.9-7.7); VLDL Calculation 17.12 mg/dL (5.00-40.00)
== END | disposition home or self-care (01) ==
LOC: LABWHC1 09:30
PROVIDERS: ATTEND Internal Medicine
DX: Z00.00 Encounter for general adult medical examination without abnormal findings (principal); I10 Essential (primary) hypertension; N20.0 Calculus of kidney; D64.9 Anemia, unspecified; R73.9 Hyperglycemia, unspecified
CPT/HCPCS: 36415; 80053; 80061; 82607; 82746; 83036; 83540; 83550; 83735; 84443; 84550; 85025

== ENCOUNTER → 2024-03-24 | Outpatient (CLI) | payer BC ==
--- NOTE | 2024-03-24 11:46 | CT ---
EXAMINATION TYPE: CT iac wo con CT DLP: 142.7 mGycm, Automated exposure control for dose reduction was used. DATE OF EXAM: 03/24/2024 11:25 AM INDICATION: Patient age:Female; 49 years old; Reason for study: H92.03 otalgia; PHH. COMPARISON: MRI brain 07/02/2017, CT brain 11/03/2015. TECHNIQUE: Multiple thin axial images were obtained through the temporal bones and internal auditory canals. Additional coronal reformatted images were obtained. No IV contrast was utilized. FINDINGS: Right Temporal Bone: External Ear: The external auditory canal is unremarkable, The tympanic membrane is present and unrem arkable. Middle Ear: The ossicles demonstrate a normal appearance. Prussak's space is clear and the scutum i s intact. There is no evidence of osseous erosion and the tegmen tympani is intact. Inner Ear: Cochlea, vestibule and semi circular canals are unremarkable. No evidence of carotid haris l dehiscence. Two and a half turns of the cochlea are identified. The vestibular aqueduct is not enl arged. Mastoid Air Cells: The mastoid air cells are clear. The tegmen mastoideum is intact. The aditus ad an trum is clear. Internal Auditory Canal: The internal auditory canal is unremarkable. Left Temporal Bone: External Ear: The external auditory canal is unremarkable, The tympanic membrane is present and unrem arkable. Middle Ear: The ossicles demonstrate a normal appearance. Prussak's space is clear and the scutum i s intact. There is no evidence of osseous erosion and the tegmen tympani is intact. Inner Ear: Cochlea, vestibule and semi circular canals are unremarkable. No evidence of carotid haris l dehiscence. Two and a half turns of the cochlea are identified. The vestibular aqueduct is not enl arged. Mastoid Air Cells: The mastoid air cells are clear. The tegmen mastoideum is intact. The aditus ad an trum is clear. Internal Auditory Canal: The internal auditory canal is unremarkable. Minimal mucosal thickening of the right maxillary sinus. The remaining paranasal sinuses are clear. IMPRESSION: No significant findings identified within the internal auditory canals bilaterally. [facility], , 03/24/2024 11:43 AM
== END | disposition home or self-care (01) ==
LOC: RADCTMAIN 11:00
PROVIDERS: ATTEND Otolaryngology
DX: H92.03 Otalgia, bilateral (principal)
CPT/HCPCS: 70480

== ENCOUNTER → 2024-03-24 | Outpatient (CLI) | payer BC ==
--- NOTE | 2024-03-24 11:46 | MM ---
Reason for Exam: Screening (asymptomatic). Last mammogram was performed 1 year(s) and 7 month(s) ago. Patient History: Menarche at age 10. First Full-Term at age 18. Postmenopausal. Risk Values: Ana 5 year model risk: 0.9%. NCI Lifetime model risk: 7.9%. Prior Study Comparison: 09/07/2014 Bilateral Screening Mammogram, [facility]. 04/07/2021 Bilateral Screening Mammogram, [facility]. 08/15/2022 Bilateral MG 3D screening mammo w/cad, [facility]. Tissue Density: There are scattered areas of fibroglandular density. Findings: Analyzed By CAD. There is no suspicious group of microcalcifications or new suspicious mass in either breast. Overall Assessment: Benign, BI-RAD 2 Management: Screening Mammogram of both breasts in 1 year. . Patient should continue monthly self-breast exams. A clinical breast exam by your physician is recommended on an annual basis. This exam should not preclude additional follow-up of suspicious palpable abnormalities. Note on Ana scores and lifetime risk: 1. A Ana score greater than 3% is considered moderate risk. If this is the case, consider specialist referral to assess eligibility for a risk reducing agent. 2. If overall lifetime risk for the development of breast cancer is 20% or higher, the patient may qualify for future screening with alternating mammogram and breast MRI. [facility], , 03/24/2024 11:44 AM. Electronically signed and approved by: Luis Felipe Momin M.D. Radiologis
== END | disposition home or self-care (01) ==
LOC: RADMAMWWP 10:32
PROVIDERS: ATTEND Internal Medicine
DX: Z12.31 Encounter for screening mammogram for malignant neoplasm of breast (principal); Z78.0 Asymptomatic menopausal state; R92.323 Mammographic fibroglandular density, bilateral breasts
CPT/HCPCS: 77063; 77067